=== PATIENT | female | born 1960 | race Caucasian/White ===

== ENCOUNTER 2017-03-10 13:25 | Inpatient (IN) | payer OTHER ==
[~2017-03-10] VITALS: Ht 162.6 cm; Wt 79.1 kg
[2017-03-16] MEDS ORDERED: ATOR40TA16 PO (11:15)
[2017-03-16] MEDS ORDERED: DICL50TA3 PO (11:15)
[2017-03-16] MEDS ORDERED: AMLO2.5C PO (11:15)
[2017-03-16] MEDS ORDERED: LISI10TA3 PO (11:16)
[2017-03-16] MEDS ORDERED: LORA1TAB12 PO (11:16)
[2017-03-16] MEDS ORDERED: VENL37.5 PO (11:16)
[2017-03-16] MEDS ORDERED: MELO7.5T4 PO (11:16)
[2017-03-16] MEDS ORDERED: HYDR12.57 PO (11:16)
[2017-04-04] MEDS ORDERED: SODIUM CHLORID 0.9% 500 ML IV PRN (06:00)
[2017-04-04] MEDS ORDERED: POVIDONE IODINE 7.5% SCRUB 118 ML BOTTLE TOPICAL SCH (06:00)
[2017-04-04] MEDS ORDERED: CHLORHEXIDINE GLUCONATE 2 % 1 PACK (2 CLOTHS) TOPICAL PRN (06:00)
[2017-04-04] MEDS ORDERED: METOPROLOL TARTRATE 25 MG TAB PO PRN (06:00)
[2017-04-04] MEDS ORDERED: EXPAREL PERI-ARTICULAR INJECTION (TOTAL VOL. 60 ML) P-ARTICULR SCH ×2 (06:00)
[2017-04-04] MEDS ORDERED: CHLORHEXIDINE GLUCONATE 4% SOLN 120 ML BTL TOPICAL SCH (06:00)
[2017-04-04] MEDS ORDERED: ceFAZolin 2 GM PREMIX 50 ML IV SCH (06:00)
[2017-04-04] MEDS ORDERED: INSULIN HUMAN REGULAR 1,000 UNITS/10 ML VIAL SQ PRN (06:00)
[2017-04-04] MEDS ORDERED: DEXAMETHASONE SOD PHOS 20 MG/5 ML VIAL IV SCH (06:00)
[2017-04-04] MEDS ORDERED: POVIDONE IODINE 5% (ANTISEPSIS KIT) 4 APPLICATIONS EACH NARE PRN (06:00)
[2017-04-04] MEDS ORDERED: VANCOMYCIN 1000 MG/NS 250 ML (for <70 kg) IV SCH ×2 (06:00)
[2017-04-04] MEDS: LACTATED RINGER'S 1000 ML IV PRN ×2 (06:30→08:47)
[2017-04-04] MEDS ORDERED: DICL50TA3 PO (06:35)
[2017-04-04] MEDS ORDERED: ENOX40P SQ (06:57)
[2017-04-04] MEDS ORDERED: HYDR-3288 PO (06:57)
[2017-04-04] MEDS ORDERED: ASPI81CH37 CHEW (06:58)
[2017-04-04] MEDS ORDERED: LORazepam 1 MG TAB PO PRN (07:00)
[2017-04-04] MEDS ORDERED: diphenhydrAMINE HCL 50 MG/ML VIAL IV PRN (07:00)
[2017-04-04] MEDS ORDERED: MORPHINE SULFATE 4 MG/ML INJ IV PUSH PRN (07:00)
[2017-04-04] MEDS ORDERED: BISACODYL 10 MG SUPP RECTAL PRN (07:00)
[2017-04-04] MEDS ORDERED: NALOXONE HCL 0.4 MG/ML AMP IV PRN (07:00)
[2017-04-04] MEDS ORDERED: Post-op Orders (for Pharmacy) MISC XX ONE (07:00)
[2017-04-04] MEDS ORDERED: ZOLPIDEM TARTRATE 5 MG TAB PO PRN (07:00)
[2017-04-04] MEDS ORDERED: SODIUM CHLORIDE 0.9% FLUSH 5 ML FLUSH IVF PRN (07:00)
[2017-04-04] MEDS ORDERED: ONDANSETRON HCL 4 MG/2 ML VIAL IVP PRN (07:00)
[2017-04-04] MEDS ORDERED: ACETAMINOPHEN 1000 MG/100 ML 100 ML IV ONE (07:23)
[2017-04-04] MEDS: VENLAFAXINE HCL XR 37.5 MG CAP PO SCH (09:00)
[2017-04-04] MEDS ORDERED: NON-FORMULARY DRUG (Amlodipine-Benazepril 1 CAP) PO SCH (09:00)
[2017-04-04] MEDS ORDERED: PILL SPLITTER OTHER PRN (09:00)
[2017-04-04] MEDS: LISINOPRIL 10 MG TAB PO SCH ×2 (09:00)
[2017-04-04] MEDS: SODIUM CHLORIDE 0.9% FLUSH 5 ML FLUSH IVF SCH ×2 (09:00→23:39)
[2017-04-04] MEDS: ATORVASTATIN 40 MG TAB PO SCH (09:00)
[2017-04-04] MEDS: amLODIPine BESYLATE 5 MG TAB PO SCH (09:00)
[2017-04-04] MEDS: HYDROCHLOROTHIAZIDE 12.5 MG CAP PO SCH (09:00)
[2017-04-04] MEDS: SODIUM CHLORIDE 0.9% IV SCH ×2 (09:05→11:25)
[2017-04-04] MEDS: TRANEXAMIC ACID IV SCH ×2 (09:05→11:25)
--- NOTE | 2017-04-04 09:10 | HHI.DCPOC ---
Discharge Care Plan Diagnosis: (1) Primary localized osteoarthrosis, lower leg Your Health Problems Are: Difficulty with ADL Goals to Promote Your Health * To prevent worsening of your condition and complications * To maintain your health at the optimal level Directions to Meet Your Goals Take your medications as prescribed Follow your dietary instruction Follow activity as directed Keep your appointments as scheduled Take your immunizations and boosters as scheduled If your symptoms worsen call your PCP, if no PCP go to Urgent Care Center or Emergency Room Smoking is Dangerous to Your Health. Avoid second hand smoke Call the 24-hour hour crisis hotline for domestic abuse at Nabil Henson Apr 04, 2017 09:10
[2017-04-04] MEDS ORDERED: WALKER WHEELS/F1 MIS (09:11)
[2017-04-04] MEDS ORDERED: CPMMACHINE (09:11)
[2017-04-04] MEDS ORDERED: COMMODE 3-IN-11 MIS (09:11)
[2017-04-04] MEDS: TRANEXAMIC PERI-ARTICULAR 3,000 MG/NS 100 ML P-ARTICULR SCH ×4 (10:30→11:26)
[2017-04-04] MEDS ORDERED: MIDAZOLAM HCL 2 MG/2 ML VIAL ONE (11:26)
[2017-04-04] MEDS ORDERED: GENTAMICIN SULFATE 80 MG/2 ML VIAL IRRIGATION ONE (11:28)
[2017-04-04] MEDS ORDERED: *morphine SULFATE 8 MG/ML PERIprocedure ONLY ONE ×3 (11:29→13:42)
[2017-04-04] MEDS: SODIUM CHLOR 0.9% 1000 ML INJ 1,000 ML IV SCH ×2 (11:41→17:00)
[2017-04-04] MEDS ORDERED: ePHEDrine/NS 25 MG/5 ML SYR IV ONE (12:00)
[2017-04-04] MEDS ORDERED: PROPOFOL 200 MG/20 ML AMP IV ONE (12:00)
[2017-04-04] MEDS ORDERED: LACTATED RINGER'S 1000 ML INJ 2,000 ML IV ONE (12:00)
[2017-04-04] MEDS ORDERED: PHENYLEPH/NS 1000 MCG/10 ML SYR IV ONE (12:00)
[2017-04-04] MEDS ORDERED: BUPIVACAINE LIPOSOME PF 1.3% 20 ML VIAL ONE (12:23)
--- NOTE | 2017-04-04 13:20 | RADRPT ---
EXAM DATE/TIME: 04/04/2017 12:46 [facility] COMPARISON: No previous studies available for comparison. INDICATIONS : Post op left knee MEDICAL HISTORY : None. SURGICAL HISTORY : left knee ENCOUNTER: Initial ACUITY: 1 day PAIN SCORE: 0/10 LOCATION: Left knee FINDINGS: AP and lateral views of the knee following arthroplasty reveals a prosthesis in anatomic alignment. F racture is not appreciated. Surgical drain is evident CONCLUSION: Status post total knee arthroplasty. Cordell Vincent MD FACR Board Certified Radiologist. This report was verified electronically.
[2017-04-04] MEDS: ACETAMINOPHEN/HYDROcodone 325 MG/7.5 MG TAB PO PRN ×2 (14:57→18:52)
[2017-04-04 21:00] VITALS: BP 123/80; PULSE 102; RESP 17; TEMP 99; O2SAT 95
[2017-04-05] MEDS: SODIUM CHLOR 0.9% 1000 ML INJ 1,000 ML IV SCH ×3 (03:00→23:00)
[2017-04-05 04:11] VITALS: BP 121/78; PULSE 103; RESP 17; TEMP 96.9; O2SAT 97
[2017-04-05] MEDS: ACETAMINOPHEN/HYDROcodone 325 MG/7.5 MG TAB PO PRN ×4 (04:50→23:22)
[2017-04-05 07:14] LABS: MEAN CELL VOLUME 89.4 FL (80.0-100.0); MEAN CORPUSCULAR HEMOGLOBIN 30.3 PG (27.0-34.0); MEAN CORPUSCULAR HGB CONC 33.8 % (32.0-36.0); PLATELET COUNT 312 TH/MM3 (150-450); RED CELL DISTRIBUTION WIDTH 13.1 % (11.6-17.2); REVIEW FLAG FINAL; WHITE BLOOD COUNT 18.6 TH/MM3 (4.0-11.0)
[2017-04-05 08:00] VITALS: BP 117/70; PULSE 91; RESP 18; TEMP 98.9; O2SAT 97
[2017-04-05 08:07] LABS: BICARBONATE 28.6 MEQ/L (21.0-32.0); POTASSIUM 3.8 MEQ/L (3.5-5.1)
--- NOTE | 2017-04-05 08:31 | PD.ORT.PN ---
Subjective Post Op Day #: 1 Subjective Remarks knee is doing well. thigh pain. Objective Vitals Vital Signs Date Time Temp Pulse Resp B/P (MAP) Pulse Ox O2 Delivery O2 Flow Rate FiO2 04/05/17 04:11 96.9 103 17 121/78 (92) 97 04/04/17 21:00 99.0 102 17 123/80 (94) 95 04/04/17 19:57 98.8 103 17 124/76 (92) 93 Room Air 04/04/17 16:45 99.2 95 16 125/71 (89) 95 Nasal Cannula 2 04/04/17 14:45 63 16 136/65 (88) 99 Nasal Cannula 2 04/04/17 14:00 98.4 85 16 138/71 (93) 100 Nasal Cannula 2 04/04/17 13:30 92 16 136/65 (88) 92 Nasal Cannula 2 04/04/17 12:00 82 16 128/57 (80) 99 Nasal Cannula 2 04/04/17 11:45 82 16 128/67 (87) 99 Nasal Cannula 2 04/04/17 11:30 83 16 127/58 (81) 100 Nasal Cannula 2 04/04/17 11:15 86 16 110/55 (73) 100 Nasal Cannula 2 04/04/17 11:10 97.8 88 16 111/62 (78) 94 Nasal Cannula 2 I/O 04/04/17 04/04/17 04/04/17 04/05/17 04/05/17 04/05/17 06:59 14:59 22:59 06:59 14:59 22:59 Intake Total 3360 ml 1816 ml 360 ml Output Total 675 ml 420 ml Balance 2685 ml 1396 ml 360 ml Intake Oral 60 ml 1080 ml 360 ml IV Total 1100 ml 736 ml Other 2200 ml Output Urine Total 150 ml 420 ml Estimated Blood Loss 100 ml Other 425 ml # Voids 1 3 # Bowel Movements 0 0 Result Diagram: 04/05/1748 04/05/17647 Objective Remarks in bed, nad dressing c/d/i neg homans nvi Assessment & Plan Ortho Post Op Day #: 1 Problem List: Assessment and Plan s/p L TKA wbat daily dressing changes lovenox d/c planning to snf 3008 signed rx in chart f/up dr. reis 2 weeks Nabil Henson PA Apr 05, 2017 08:31
[2017-04-05] MEDS: SODIUM CHLORIDE 0.9% FLUSH 5 ML FLUSH IVF SCH ×2 (09:00→20:55)
[2017-04-05] MEDS: amLODIPine BESYLATE 5 MG TAB PO SCH (09:00)
[2017-04-05] MEDS: LISINOPRIL 10 MG TAB PO SCH ×2 (09:00)
[2017-04-05] MEDS: HYDROCHLOROTHIAZIDE 12.5 MG CAP PO SCH (09:18)
[2017-04-05] MEDS: VENLAFAXINE HCL XR 37.5 MG CAP PO SCH (09:18)
[2017-04-05] MEDS: ATORVASTATIN 40 MG TAB PO SCH (09:19)
[2017-04-05] MEDS: ENOXAPARIN SODIUM 40 MG/0.4 ML SYRINGE SQ SCH (11:54)
[2017-04-05 12:00] VITALS: BP 134/77; PULSE 91; RESP 18; TEMP 99.1; O2SAT 98
--- NOTE | 2017-04-05 15:22 | MP ---
cc: ZACH ESCOBAR M.D. DATE OF SURGERY: 04/04/2017 PREOPERATIVE DIAGNOSIS Left knee osteoarthritis. POSTOPERATIVE DIAGNOSIS Left knee osteoarthritis. PROCEDURE Left total knee arthroplasty. SURGEON Dr. Zach Escobar. COLLISION MECHANIC Zach Henson PA-C. ANESTHESIA Spinal. ESTIMATED BLOOD LOSS 100 cc. COMPLICATIONS None. IMPLANTS USED DePuy Attune size 6 posterior stabilized femoral component, size 5 rotating platform tibia baseplate, size 6 mm polyethylene tibial insert, size 35 patella. JUSTIFICATION The patient is a 57-year-old female with a history of severe end-stage osteoarthritis involving the left knee. She has severe disabling pain with standing, walking, ambulation, weightbearing activities and severe pain at rest. She has failed greater than three months of nonoperative surgical treatment to include medication therapy, injections, ambulatory assisted aids, home exercise program and activity modification. X-rays of the left knee reveal severe end-stage osteoarthritis with [id number] joint space narrowing, subchondral sclerosis, subchondral cysts, osteophyte formation with varus deformity. The patient was counseled as to the risks, benefits and alternatives of a total knee arthroplasty. The risks were discussed which include but are not limited to anesthesia, bleeding, infection, damage to nerves and blood vessels, pain, stiffness, failure of components, blood clot, pulmonary embolism and even . The patient's pain is severe. She favored the benefits over the risks and did wish to proceed with surgery. PROCEDURE IN DETAIL A written consent was obtained. The patient was identified by name, taken to the operating room and placed supine on the operating table. Spinal anesthesia was administered as well as two grams of IV Ancef and one gram of IV vancomycin. A left adductor canal femoral nerve block was performed. A well-padded tourniquet was placed on the left thigh. The left lower extremity was prepped and draped using isopropyl alcohol, Hibiclens solution and ChloraPrep solution. After a timeout was performed an Esmarch bandage was used to exsanguinate the left lower extremity and the tourniquet inflated to 250 mmHg. A longitudinal incision was made over the anterior aspect of the left knee. A medial parapatellar arthrotomy was performed. The patella was everted. A patellar resection guide was used to resect 7 mm of patella. The size 35 mm guide was placed. Three drill holes were placed and the 35 mm trial fit well. Attention was turned to the femur. An intermedullary guide was placed and the distal femoral guide set to remove 9 mm of distal femur 5 degrees off the anatomic valgus axis alignment. An oscillating saw was used to perform the distal femoral cut. Attention was turned to the tibia where an extramedullary tibial guide was set to remove 5 mm off the lowest portion of the medial tibial plateau. The tibia guide was pinned in place and the tibia cut was performed. A 5 mm spacer block showed full extension. Attention was turned back to the femur where the AP sizing block measured a size 6. The anterior reference 30-degree external rotation guide was used to pin a size [address] The anterior, posterior and chamfer cuts were performed. A six 6 PCL box guide was pinned in place and the PCL was box cut with an oscillating saw. The medial and lateral meniscus remnants were removed as well as bone and soft tissue debris from the posterior portion of the knee. A size 5 tibia baseplate was pinned in place. The tibia was drilled and punched. The trial components were evaluated and final components cemented in placed. With the 6 mm tibial insert the leg could achieve full extension to 0 degrees and flexion to 140. No evidence of tibial lift-off. Varus-valgus balance appeared appropriate and symmetric and the patella was noted to track centrally. With the tourniquet deflated Bovie cautery was used for hemostasis. The knee was thoroughly irrigated with sterile saline pulse lavage antibiotic impregnated solution. The arthrotomy incision was closed with a combination of #1 Vicryl suture and 0 Vicryl suture. The subcutaneous layer was closed with 2-0 Vicryl suture. Skin was closed with Dermabond. Sterile dressing was applied. The patient tolerated the procedure well with no intraoperative complications noted. Zach Henson, physician histology assistant certified, was present during the entire procedure to include patient positioning and the procedure itself. The medical necessity of a physician histology assistant was indicated in this case due to the complexity of the procedure. He assisted with appropriate manipulation of the leg and also retraction of muscle, tendon, bone and neurovascular structures. He assisted with preparation of bone and also implantation of the prosthetic replacement. MD SIMONA Barrientos/ARAMIS /10:48 AM /2:57 PM
[2017-04-05 16:00] VITALS: BP 141/86; PULSE 94; RESP 18; TEMP 99.3; O2SAT 100
[2017-04-05] MEDS: MAGNESIUM HYDROXIDE SUSP 30 ML CUP PO SCH (18:00)
[2017-04-05] MEDS: DOCUSATE SODIUM 100 MG CAP PO SCH ×2 (18:00→20:51)
[2017-04-05 19:10] VITALS: BP 121/69; PULSE 92; RESP 18; TEMP 98; O2SAT 96
[2017-04-05] MEDS: MULTIVITAMINS/MINERALS THERAPEUTIC TAB PO SCH (20:54)
[2017-04-05 23:15] VITALS: BP 126/75; PULSE 89; RESP 18; TEMP 98.7; O2SAT 97
[2017-04-06 05:12] LABS: HEMATOCRIT 31.4 % (35.0-46.0); MEAN CORPUSCULAR HEMOGLOBIN 30.3 PG (27.0-34.0); MEAN CORPUSCULAR HGB CONC 34.1 % (32.0-36.0); PLATELET COUNT 259 TH/MM3 (150-450); RED BLOOD COUNT 3.53 MIL/MM3 (4.00-5.30); RED CELL DISTRIBUTION WIDTH 13.3 % (11.6-17.2); REVIEW FLAG FINAL
[2017-04-06 05:15] LABS: BICARBONATE 31.8 MEQ/L (21.0-32.0); POTASSIUM 3.5 MEQ/L (3.5-5.1)
[2017-04-06 08:00] VITALS: BP 128/84; PULSE 97; RESP 18; TEMP 98.9; O2SAT 95
--- NOTE | 2017-04-06 08:10 | PD.ORT.PN ---
Subjective Post Op Day #: 2 Subjective Remarks knee is doing well. left knee and thigh pain. Objective Vitals Vital Signs Date Time Temp Pulse Resp B/P (MAP) Pulse Ox O2 Delivery O2 Flow Rate FiO2 04/05/17 23:15 98.7 89 18 126/75 (92) 97 04/05/17 19:10 98.0 92 18 121/69 (86) 96 04/05/17 16:00 99.3 94 18 141/86 (104) 100 04/05/17 12:00 99.1 91 18 134/77 (96) 98 I/O 04/05/17 04/05/17 04/05/17 04/06/17 04/06/17 04/06/17 07:00 15:00 23:00 07:00 15:00 23:00 Intake Total 360 ml 600 ml 360 ml 360 ml Balance 360 ml 600 ml 360 ml 360 ml Intake Oral 360 ml 600 ml 360 ml 360 ml # Voids 3 1 2 1 # Bowel Movements 0 0 0 0 Result Diagram: 04/06/1732904/06/17 033 Objective Remarks in bed, nad incision no erythema, no drainage neg homans nvi Assessment & Plan Ortho Post Op Day #: 2 Problem List: Assessment and Plan s/p L TKA wbat daily dressing changes lovenox d/c planning to snf - cleared today 3008 signed rx in chart f/up dr. reis 2 weeks Nabil Henson Apr 06, 2017 08:10
[2017-04-06] MEDS: SODIUM CHLOR 0.9% 1000 ML INJ 1,000 ML IV SCH (09:00)
[2017-04-06] MEDS: LISINOPRIL 10 MG TAB PO SCH ×2 (09:00→09:56)
[2017-04-06] MEDS: SODIUM CHLORIDE 0.9% FLUSH 5 ML FLUSH IVF SCH (09:00)
[2017-04-06] MEDS: MULTIVITAMINS/MINERALS THERAPEUTIC TAB PO SCH (09:55)
[2017-04-06] MEDS: MAGNESIUM HYDROXIDE SUSP 30 ML CUP PO SCH (09:55)
[2017-04-06] MEDS: ATORVASTATIN 40 MG TAB PO SCH (09:55)
[2017-04-06] MEDS: amLODIPine BESYLATE 5 MG TAB PO SCH (09:55)
[2017-04-06] MEDS: HYDROCHLOROTHIAZIDE 12.5 MG CAP PO SCH (09:55)
[2017-04-06] MEDS: ACETAMINOPHEN/HYDROcodone 325 MG/7.5 MG TAB PO PRN (09:56)
[2017-04-06] MEDS: DOCUSATE SODIUM 100 MG CAP PO SCH (09:57)
[2017-04-06] MEDS: VENLAFAXINE HCL XR 37.5 MG CAP PO SCH (10:01)
[2017-04-06] MEDS: ENOXAPARIN SODIUM 40 MG/0.4 ML SYRINGE SQ SCH (10:02)
[2017-04-06 16:00] VITALS: BP 113/75; PULSE 97; RESP 18; TEMP 98.8; O2SAT 96
--- NOTE | 2017-04-12 09:17 | MD ---
cc: ZACH ESCOBAR ADMISSION DATE: 04/04/2017 DISCHARGE DATE: 04/06/2017 ADMITTING DIAGNOSIS Severe degenerative osteoarthritis, left knee. DISCHARGE DIAGNOSIS Severe degenerative osteoarthritis, left knee. HISTORY OF PRESENT ILLNESS Ms. Yoon is a 57-year-old female who presented to the [facility] for evaluation by Dr. Zach Escobar regarding her progressive left knee pain. The patient states the pain has been progressive for the last several years and is currently inhibiting her ability to ambulate. She notes she has a severe constant aching sensation in her left knee which is even aggravated by weightbearing activities. She notes she has no alleviating factors at this point in time, although in the past she has tried medications, bracing, physical therapy, home exercise program, weight loss attempts and even corticosteroid injection without relief of symptoms. She does have x-ray evidence of severe degenerative osteoarthritis of the left knee. While in the office the patient was counseled on her diagnosis and treatment options. The risks, benefits and indications of all were discussed in great detail. The patient did elect to proceed with surgical intervention to include a left total knee arthroplasty. Date of surgery 04/04/2017, left total knee arthroplasty. POST-OP After surgery the patient was admitted to [facility] where she received appropriate medical management, pain control and DVT prophylaxis, as well as physical therapy. DISCHARGE Once being discharged from the hospital the patient was cleared to go to a [facility] facility. She is in stable condition. She may weight bear as tolerated. She is to receive daily dressing changes and has been instructed on proper wound care management. The patient has been provided prescriptions for pain control as well as DVT prophylaxis medication. She has also been provided a follow-up appointment approximately 2 weeks from her date of surgery. The patient has asked appropriate questions which have been answered. The patient has been discharged. Dictated by: Zach Henson PA-C MD SIMONA Barrientos/ARAMIS /8:04 AM /9:06 AM
== END 2017-04-06 13:48 | DRG 470 ==
LOC: HSDI 04-04 05:14 → EDUNIT# 04-04 10:00 → N06A 04-04 20:16
PROVIDERS: ADMIT Orthopaedic Surgery Sports Medicine; ATTEND Orthopaedic Surgery Sports Medicine
PROC: 0SRD0J9 Replacement of Left Knee Joint with Synthetic Substitute, Cemented, Open Approach (ICD-10-PCS; principal; 2017-04-04 08:47)
DX: M17.12 Unilateral primary osteoarthritis, left knee (principal); I10 Essential (primary) hypertension; E78.5 Hyperlipidemia, unspecified
CPT/HCPCS: 73560; 80048; 85027; 86850; 86900; 86901; 94150; C1776; C9290; J0131; J0690; J1100; J1580; J1650; J2250; J2270; J2370; J3010; J3370; J7030; J7050; J7120; L1830

== ENCOUNTER → 2017-03-14 | Outpatient (CLI) | payer OTHER ==
[~2017-03-14] MED LIST: AMLO2.5C PO; ASPI81CH37 CHEW; ATOR40TA16 PO; COMMODE 3-IN-11 MIS; CPMMACHINE; DICL50TA3 PO; ENOX40P SQ; HYDR-3288 PO; HYDR12.57 PO; LISI10TA3 PO; LORA1TAB12 PO; MELO7.5T4 PO; VENL37.5 PO; WALKER WHEELS/F1 MIS
--- NOTE | 2017-03-14 12:39 | RADRPT ---
EXAM DATE/TIME: 03/14/2017 11:45 [facility] COMPARISON: No previous studies available for comparison. INDICATIONS : Evaluate for pneumonia,pneumothorax and communicable diseases. Pre-op knee surgery MEDICAL HISTORY : None. SURGICAL HISTORY : None. ENCOUNTER: Initial ACUITY: 1 day PAIN SCORE: 0/10 LOCATION: chest FINDINGS: PA and lateral views of the chest demonstrate the lungs to be symmetrically aerated without evidence of mass, infiltrate or effusion. The cardiomediastinal contours are unremarkable. Osseous structure s are intact. CONCLUSION: No acute disease. Cordell Vincent MD FACR on March 14, 2017 at 12:38 Board Certified Radiologist. This report was verified electronically.
--- NOTE | 2017-03-14 16:24 | EKG ---
Date Performed: 03/14/2017 Time Performed: 09:55:04 PTAGE: 57 years EKG: Sinus rhythm NORMAL ECG NO PREVIOUS TRACING DOCTOR: Magdiel Caldwell Interpretating Date/Time 03/14/2017 16:20:51
== END ==
LOC: CPRE 09:39
PROVIDERS: ATTEND Orthopaedic Surgery Sports Medicine
DX: Z01.810 Encounter for preprocedural cardiovascular examination (principal); Z01.811 Encounter for preprocedural respiratory examination; Z01.812 Encounter for preprocedural laboratory examination; Z01.818 Encounter for other preprocedural examination; M17.12 Unilateral primary osteoarthritis, left knee
CPT/HCPCS: 71020; 93005